=== PATIENT | male | born 1950 ===

== ENCOUNTER 2020-11-28 14:57 | Inpatient (IN) | payer MEDICARE ==
--- NOTE | 2020-11-28 15:29 | XRay Report ---
CHEST 1 VIEW 11/28/2020 3:04 PM INDICATION / CLINICAL INFORMATION: sepsis. COMPARISON: 05/04/2019 FINDINGS: SUPPORT DEVICES: None. HEART / MEDIASTINUM: No significant abnormality. LUNGS / PLEURA: Increased densities in left lower lung adjacent left cardiac border. Mild increased v ascularity perihilar regions. Mild interstitial prominence in bilateral lower lungs. No pneumothorax. Signer Name: Jose Ruff MD Signed: 11/28/2020 3:25 PM Workstation Name: [email or web address]
--- NOTE | 2020-11-28 15:35 | Emergency Department Report ---
ED Altered Mental Status HPI - General Chief Complaint: Altered Mental Status Stated Complaint: AMS/HYPOTENSION Time Seen by Provider: 11/28/20 14:59 Source: EMS Mode of arrival: Ambulatory Limitations: Altered Mental Status - History of Present Illness Initial Comments: Chief complaint: Altered mental status, hypotension HPI: This is a 70-year-old male with history of CVA, left hemiplegia, hypertension, SIRS, bradycardia, GERD, chronic pain, GI bleed, cataract, hyperlipidemia, anemia, ulcerative colitis, dementia who presents with altered mental status. According to EMS, nursing staff states that he is normally GCS 15. Patient is lethargic with hypotension. Systolic blood pressure 74 mmHg. Accu-Chek normal per EMS. Altered mental status began 2 hours prior to arrival. Patient [facility]. Patient is a resident of [facility] MD Complaint: altered mental status -: Sudden, hour(s) (2 hours) Severity: severe Consistency of Symptoms: waxing and waning Context: unknown Associated Symptoms: other (Hypotension) ED Review of Systems ROS: Stated complaint: AMS/HYPOTENSION Other details as noted in HPI Comment: Unobtainable due to pts medical conditions (Altered mental status, critically ill patient) ED Past Medical Hx - Past Medical History Previous Medical History?: Yes Hx Hypertension: Yes Hx CVA: Yes Hx Congestive Heart Failure: Yes Hx GERD: Yes Hx Dementia: Yes - Surgical History Past Surgical History?: Yes Additional Surgical History: Unable to be obtained from patient - Family History Family history: other (Noncontributory to patient's presentation today) - Social History Smoking Status: Unknown if ever smoked ED Physical Exam - General Limitations: Altered Mental Status General appearance: lethargic, other (Will make eye contact, will withdraw from noxious stimuli,) - Head Head exam: Present: atraumatic, normocephalic - Eye Eye exam: Absent: scleral icterus, conjunctival injection - ENT ENT exam: Present: mucous membranes dry - Neck Neck exam: Present: normal inspection, full ROM - Respiratory Respiratory exam: Present: normal lung sounds bilaterally. Absent: respiratory distress, wheezes, rales, stridor - Cardiovascular Cardiovascular Exam: Present: regular rate, normal rhythm, normal heart sounds. Absent: systolic murmur, diastolic murmur, rubs, gallop - GI/Abdominal GI/Abdominal exam: Present: soft, normal bowel sounds. Absent: distended, tenderness, guarding, rebound - Rectal Rectal exam: Present: deferred - Extremities Exam Extremities exam: Present: other (Contracted left upper left lower extremities) - Neurological Exam Neurological exam: Present: altered - Psychiatric Psychiatric exam: Present: flat affect - Skin Skin exam: Present: warm, dry, intact, pallor, other (Cool to touch) ED Course Vital Signs 11/28/20 11/28/20 11/28/20 15:12 15:48 15:49 Temperature 99.7 F H Pulse Rate 62 64 64 Respiratory 18 12 16 Rate Blood Pressure Blood Pressure 85/59 105/69 [Left] O2 Sat by Pulse 95 Oximetry 11/28/20 16:00 Temperature Pulse Rate 60 Respiratory 13 Rate Blood Pressure 105/69 Blood Pressure [Left] O2 Sat by Pulse 99 Oximetry - Lab Data Result diagrams: 11/28/20 15:10 11/28/20 15:10 Lab Results 11/28/20 11/28/20 11/28/20 Range/Units 15:10 15:10 15:10 WBC 12.1 H (4.5-11.0) K/mm3 RBC 5.13 H (3.65-5.03) M/mm3 Hgb 14.4 (11.8-15.2) gm/dl Hct 44.7 (35.5-45.6) % MCV 87 (84-94) fl MCH 28 (28-32) pg MCHC 32 (32-34) % RDW 16.7 H (13.2-15.2) % Plt Count 616 H (140-440) K/mm3 Lymph % (Auto) 12.2 L (13.4-35.0) % [place] % (Auto) 6.7 (0.0-7.3) % Eos % (Auto) 1.0 (0.0-4.3) % Baso % (Auto) 0.7 (0.0-1.8) % Lymph # (Auto) 1.5 (1.2-5.4) K/mm3 [place] # (Auto) 0.8 (0.0-0.8) K/mm3 Eos # (Auto) 0.1 (0.0-0.4) K/mm3 Baso # (Auto) 0.1 (0.0-0.1) K/mm3 Seg Neutrophils % 79.4 H (40.0-70.0) % Seg Neutrophils # 9.6 H (1.8-7.7) K/mm3 Sodium 147 H (137-145) mmol/L Potassium 3.0 L (3.6-5.0) mmol/L Chloride 102.6 (98-107) mmol/L Carbon Dioxide 34 H (22-30) mmol/L Anion Gap 13 mmol/L BUN 77 H (9-20) mg/dL Creatinine 5.6 H (0.8-1.3) mg/dL Estimated GFR 10 ml/min BUN/Creatinine Ratio 14 % Glucose 111 H (75-100) mg/dL Lactic Acid 2.30 H* (0.7-2.0) mmol/L Calcium 8.9 (8.4-10.2) mg/dL Total Bilirubin 0.40 (0.1-1.2) mg/dL AST 26 (5-40) units/L ALT 13 (7-56) units/L Alkaline Phosphatase 113 (35-129) units/L Troponin T 0.045 H (0.00-0.029) ng/mL Total Protein 7.9 (6.3-8.2) g/dL Albumin 3.7 L (3.9-5) g/dL Albumin/Globulin Ratio 0.9 % Triglycerides 182 H (2-149) mg/dL Cholesterol 168 (50-199) mg/dL LDL Cholesterol Direct 111 (50-130) mg/dL HDL Cholesterol 27 L (40-59) mg/dL Cholesterol/HDL Ratio 6.22 % Urine Color (Yellow) Urine Turbidity (Clear) Urine pH (5.0-7.0) Ur Specific [place] (1.003-1.030) Urine Protein (Negative) mg/dL Urine Glucose (UA) (Negative) mg/dL Urine Ketones (Negative) mg/dL Urine Blood (Negative) Urine Nitrite (Negative) Urine Bilirubin (Negative) Urine Urobilinogen (<2.0) mg/dL Ur Leukocyte Esterase (Negative) Urine WBC (Auto) (0.0-6.0) /HPF Urine RBC (Auto) (0.0-6.0) /HPF U Epithel Cells (Auto) (0-13.0) /HPF Urine Bacteria (Auto) (Negative) /HPF Urine WBC Clumps /HPF Urine Mucus /HPF 11/28/20 Range/Units 15:49 WBC (4.5-11.0) K/mm3 RBC (3.65-5.03) M/mm3 Hgb (11.8-15.2) gm/dl Hct (35.5-45.6) % MCV (84-94) fl MCH (28-32) pg MCHC (32-34) % RDW (13.2-15.2) % Plt Count (140-440) K/mm3 Lymph % (Auto) (13.4-35.0) % [place] % (Auto) (0.0-7.3) % Eos % (Auto) (0.0-4.3) % Baso % (Auto) (0.0-1.8) % Lymph # (Auto) (1.2-5.4) K/mm3 [place] # (Auto) (0.0-0.8) K/mm3 Eos # (Auto) (0.0-0.4) K/mm3 Baso # (Auto) (0.0-0.1) K/mm3 Seg Neutrophils % (40.0-70.0) % Seg Neutrophils # (1.8-7.7) K/mm3 Sodium (137-145) mmol/L Potassium (3.6-5.0) mmol/L Chloride (98-107) mmol/L Carbon Dioxide (22-30) mmol/L Anion Gap mmol/L BUN (9-20) mg/dL Creatinine (0.8-1.3) mg/dL Estimated GFR ml/min BUN/Creatinine Ratio % Glucose (75-100) mg/dL Lactic Acid (0.7-2.0) mmol/L Calcium (8.4-10.2) mg/dL Total Bilirubin (0.1-1.2) mg/dL AST (5-40) units/L ALT (7-56) units/L Alkaline Phosphatase (35-129) units/L Troponin T (0.00-0.029) ng/mL Total Protein (6.3-8.2) g/dL Albumin (3.9-5) g/dL Albumin/Globulin Ratio % Triglycerides (2-149) mg/dL Cholesterol (50-199) mg/dL LDL Cholesterol Direct (50-130) mg/dL HDL Cholesterol (40-59) mg/dL Cholesterol/HDL Ratio % Urine Color [place] (Yellow) Urine Turbidity Cloudy (Clear) Urine pH 5.0 (5.0-7.0) Ur Specific [place] 1.018 (1.003-1.030) Urine Protein 100 mg/dl (Negative) mg/dL Urine Glucose (UA) Neg (Negative) mg/dL Urine Ketones Neg (Negative) mg/dL Urine Blood Neg (Negative) Urine Nitrite Neg (Negative) Urine Bilirubin Neg (Negative) Urine Urobilinogen < 2.0 (<2.0) mg/dL Ur Leukocyte Esterase Lg (Negative) Urine WBC (Auto) 152.0 H (0.0-6.0) /HPF Urine RBC (Auto) 6.0 (0.0-6.0) /HPF U Epithel Cells (Auto) 1.0 (0-13.0) /HPF Urine Bacteria (Auto) 4+ (Negative) /HPF Urine WBC Clumps 3+ /HPF Urine Mucus Few /HPF - Radiology Data Radiology results: report reviewed Patient Name: ANGELICA RAMOS Gender: Male Date of : 1950 Referring Provider: EDILIA RUCKER Organization: [facility] Accession Number: [id number] Requested Date: November 28, 2020 15:00 Report Status: Final Requested Procedure: 1 Procedure Description: XR chest 1V ap Modality: XR Findings Reporting MD: Jose Ruff Dictation Time: November 28, 2020 14:25 Press Manager: Not available Hunting Guide Date: CHEST 1 VIEW 11/28/2020 3:04 PM INDICATION / CLINICAL INFORMATION: sepsis. COMPARISON: 05/04/2019 FINDINGS: SUPPORT DEVICES: None. HEART / MEDIASTINUM: No significant abnormality. LUNGS / PLEURA: Increased densities in left lower lung adjacent left cardiac border. Mild increased vascularity perihilar regions. Mild interstitial prominence in bilateral lower lungs. No pneumothorax. Signer Name: Jose Ruff MD Signed: 11/28/2020 2:25 PM Workstation Name: [employer] Findings Reporting MD: Matias Arauz Dictation Time: November 28, 2020 16:24 Press Manager: Not available Hunting Guide Date: CT ABDOMEN AND PELVIS WITHOUT CONTRAST HISTORY: Sepsis, acute kidney injury COMPARISON: Prior CT on 05/07/2019 TECHNIQUE: Routine abdominal and pelvic CT exam performed without contrast. Lack of intravenous contrast limits evaluation of the vascular and solid organs.. All CT scans at this location are performed using CT dose reduction for ALARA by means of automated exposure control. FINDINGS: CT ABDOMEN: Lung Bases: Mild bibasilar subsegmental atelectasis. Liver: No significant abnormality. Biliary: No significant abnormality. Spleen: No significant abnormality. Unenlarged. Pancreas: No significant abnormality. Adrenals: No significant abnormality. Kidneys: No significant abnormality. Lymphatics: No lymphadenopathy. Vasculature: Abdominal aortic and branch vessel atherosclerotic calcifications without aortic aneurysm. Bowel/Peritoneum: No significant abnormality. No free air. No free fluid. Normal appendix. CT PELVIC: : Antunez catheter in the urinary bladder. Mildly enlarged prostate again noted. Lymphatics: No lymphadenopathy. Osseous Structures: No aggressive appearing osseous lesions. Additional Findings: None IMPRESSION: 1. No acute findings. 2. Incidental findings as detailed above. Signer Name: Matias Arauz MD Signed: 11/28/2020 4:24 PM Workstation Name: [employer] - Medical Decision Making 1. UTI, septic shock: Hypotension resolved with IV fluid therapy. Upon arrival sepsis bundle ordered. IV ceftriaxone initiated emergency department. 2. Acute kidney injury attributed to renal hypoperfusion. CT abdomen pelvis did not reveal any cause for obstruction. Lab abnormalities include elevated lactic acid, BUN creatinine Pyuria on urinalysis and mild leukocytosis I personally reviewed chest radiograph: I suspect atelectasis in the left lower lobe. I do not suspect that patient has pneumonia clinically. Patient is admitted to telemetry hospitalist service. Critical Care Time: Yes Critical care time in (mins) excluding proc time.: 40 Critical care attestation.: If time is entered above; I have spent that time in minutes in the direct care of this critically ill patient, excluding procedure time. 40 minutes of critical care time excluding procedures were used in the care of the patient. Prior to patient's arrival, I received EMS report alongside RN. I was concerned for septic shock. I met the patient upon arrival in the treatment room. I obtained history from EMS at the bedside. I discussed treatment plan with the nursing team members. I directed resuscitation. I immediately ordered sepsis bundle. I reviewed electronic record. I reviewed SNF documentation patient required multiple interventions and reassessments. ED Disposition Clinical Impression: UTI (urinary tract infection), Septic shock, Acute kidney injury Disposition: DC-09 OP ADMIT IP TO THIS HOSP Is pt being admited?: Yes Does the pt Need Aspirin: No Condition: Stable Referrals: FLORESITA SANDS MD [Primary Care Provider] - 3-5 Days
[2020-11-28 16:00] LABS: Basophils # (Auto) 0.1 K/mm3 (0.0-0.1); Basophils % (Auto) 0.7 % (0.0-1.8); Eosinophils # (Auto) 0.1 K/mm3 (0.0-0.4); Hematocrit 44.7 % (35.5-45.6); Hemoglobin 14.4 gm/dl (11.8-15.2); Lymphocytes # (Auto) 1.5 K/mm3 (1.2-5.4); Lymphocytes % (Auto) 12.2 % (13.4-35.0); Mean Corpuscular HGB Conc 32 % (32-34); Mean Corpuscular Volume 87 fl (84-94); Monocytes # (Auto) 0.8 K/mm3 (0.0-0.8); Monocytes % (Auto) 6.7 % (0.0-7.3); Platelet Count 616 K/mm3 (140-440); Red Blood Count 5.13 M/mm3 (3.65-5.03); Red Cell Distribution Width 16.7 % (13.2-15.2)
[2020-11-28 16:21] LABS: Albumin 3.7 g/dL (3.9-5); Calcium 8.9 mg/dL (8.4-10.2)
[2020-11-28 16:32] LABS: Chol/HDL Ratio 6.22 %
[2020-11-28 16:36] LABS: Bacteria,Urine 4+ /HPF (Negative); Bilirubin,Urine NEG (Negative); Blood,Urine NEG (Negative); Color,Urine Amber (Yellow); Mucus,Urine FEW /HPF; Urobilinogen,Urine < 2.0 mg/dL (<2.0)
[2020-11-28] MEDS ORDERED: cefTRIAXone/NS 1 GM/50 ML 1 GM/50 ML BAG IV ONE (16:37)
[2020-11-28] MEDS ORDERED: SODIUM CHLORIDE 0.9% 1000 ML IV SOLN IV ONE (16:37)
--- NOTE | 2020-11-28 17:28 | Cat Scan Report ---
CT ABDOMEN AND PELVIS WITHOUT CONTRAST HISTORY: Sepsis, acute kidney injury COMPARISON: Prior CT on 05/07/2019 TECHNIQUE: Routine abdominal and pelvic CT exam performed without contrast. Lack of intravenous cont rast limits evaluation of the vascular and solid organs.. All CT scans at this location are performed using CT dose reduction for ALARA by means of automated exposure control. FINDINGS: CT ABDOMEN: Lung Bases: Mild bibasilar subsegmental atelectasis. Liver: No significant abnormality. Biliary: No significant abnormality. Spleen: No significant abnormality. Unenlarged. Pancreas: No significant abnormality. Adrenals: No significant abnormality. Kidneys: No significant abnormality. Lymphatics: No lymphadenopathy. Vasculature: Abdominal aortic and branch vessel atherosclerotic calcifications without aortic aneurys m. Bowel/Peritoneum: No significant abnormality. No free air. No free fluid. Normal appendix. CT PELVIC: : Antunez catheter in the urinary bladder. Mildly enlarged prostate again noted. Lymphatics: No lymphadenopathy. Osseous Structures: No aggressive appearing osseous lesions. Additional Findings: None IMPRESSION: 1. No acute findings. 2. Incidental findings as detailed above. Signer Name: Matias Arauz MD Signed: 11/28/2020 5:24 PM Workstation Name: [id number]
[2020-11-28] MEDS ORDERED: SODIUM CHLORIDE 0.9% 1000 ML 1,000 ML ONE (18:39)
--- NOTE | 2020-11-28 22:26 | History and Physical Report ---
History of Present Illness Date of examination: 11/28/20 Date of admission: 11/28/20 17:49 Chief complaint: Altered mental status, hypotension History of present illness: 70-year-old male with history of CVA, left hemiplegia, hypertension, SIRS, bradycardia, GERD, chronic pain, GI bleed, cataract, hyperlipidemia, anemia, ulcerative colitis, dementia presents with altered mental status. According to EMS, nursing staff states that he is normally GCS 15. Patient is lethargic with hypotension. Systolic blood pressure 74 mmHg. Accu-Chek normal per EMS. Altered mental status began 2 hours prior to arrival. Patient had negative rapid Covid test today at [facility]. Patient is a resident of [facility].No fever or chills Complaint: altered mental status -: Sudden, hour(s) (2 baldomero Severity: severe Consistency of Symptoms: waxing and waning Context: unknown Associated Symptoms: other (Hypotension) - Past Medical History Previous Medical History?: Yes --Hypertension: Yes --CVA: Yes --Congestive Heart Failure: Yes --GERD: Yes --Dementia: Yes - Surgical History Past Surgical History?: Yes Additional Surgical History: Unable to be obtained from patient - Family History Family history: other (Noncontributory to patient's presentation today) - Social History Smoking Status: Unknown if ever smoked Review of Systems ROS: Stated complaint: AMS/HYPOTENSION Other details as noted in HPI Comment: Unobtainable due to pts medical conditions (Altered mental status, critically ill patient) Medications and Allergies Allergies Allergy/AdvReac Type Severity Reaction Status Date / Time Unable to Assess Allergy Unverified 11/28/20 23:00 Exam - Constitutional Vitals: Temp Pulse Resp BP Pulse Ox 99.7 F H 57 L 12 120/75 99 11/28/20 15:49 11/28/20 18:46 11/28/20 18:46 11/28/20 18:46 11/28/20 16:30 General appearance: Present: no acute distress, well-nourished - EENT Eyes: Present: PERRL ENT: hearing intact, clear oral mucosa - Neck Neck: Present: supple, normal ROM - Respiratory Respiratory effort: normal Respiratory: bilateral: CTA - Cardiovascular Heart rate: 78 Rhythm: regular Heart Sounds: Present: S1 & S2. Absent: rub, click - Extremities Extremities: no ischemia, pulses intact, pulses symmetrical, No edema Peripheral Pulses: within normal limits - Abdominal General gastrointestinal: Present: soft, non-tender, non-distended, normal bowel sounds Male genitourinary: Present: normal - Integumentary Integumentary: Present: clear, warm, dry - Musculoskeletal Musculoskeletal: generalized weakness, other (Lethargic and decreased responsivenes) - Psychiatric Psychiatric: other (Lethargic and decreased responsivenes) - Neurologic Neurologic: CNII-XII intact, moves all extremities HEART Score - HEART Score History: Slightly suspicious Risk factors: 1-2 risk factors Troponin: Troponin T 0.045 ng/mL (0.00-0.029) H 11/28/20 15:10 Troponin: < normal limit - Critical Actions Critical Actions: 0-3 pts:0.9-1.7%risk of adverse cardiac event.Candidate for discharge Results - Labs CBC & Chem 7: 11/28/20 15:10 11/28/20 15:10 Labs: Laboratory Last Values WBC 12.1 K/mm3 (4.5-11.0) H 11/28/20 15:10 RBC 5.13 M/mm3 (3.65-5.03) H 11/28/20 15:10 Hgb 14.4 gm/dl (11.8-15.2) 11/28/20 15:10 Hct 44.7 % (35.5-45.6) 11/28/20 15:10 MCV 87 fl (84-94) 11/28/20 15:10 MCH 28 pg (28-32) 11/28/20 15:10 MCHC 32 % (32-34) 11/28/20 15:10 RDW 16.7 % (13.2-15.2) H 11/28/20 15:10 Plt Count 616 K/mm3 (140-440) H 11/28/20 15:10 Lymph % (Auto) 12.2 % (13.4-35.0) L 11/28/20 15:10 [place] % (Auto) 6.7 % (0.0-7.3) 11/28/20 15:10 Eos % (Auto) 1.0 % (0.0-4.3) 11/28/20 15:10 Baso % (Auto) 0.7 % (0.0-1.8) 11/28/20 15:10 Lymph # (Auto) 1.5 K/mm3 (1.2-5.4) 11/28/20 15:10 [place] # (Auto) 0.8 K/mm3 (0.0-0.8) 11/28/20 15:10 Eos # (Auto) 0.1 K/mm3 (0.0-0.4) 11/28/20 15:10 Baso # (Auto) 0.1 K/mm3 (0.0-0.1) 11/28/20 15:10 Seg Neutrophils % 79.4 % (40.0-70.0) H 11/28/20 15:10 Seg Neutrophils # 9.6 K/mm3 (1.8-7.7) H 11/28/20 15:10 Sodium 147 mmol/L (137-145) H 11/28/20 15:10 Potassium 3.0 mmol/L (3.6-5.0) L 11/28/20 15:10 Chloride 102.6 mmol/L (98-107) 11/28/20 15:10 Carbon Dioxide 34 mmol/L (22-30) H 11/28/20 15:10 Anion Gap 13 mmol/L 11/28/20 15:10 BUN 77 mg/dL (9-20) H 11/28/20 15:10 Creatinine 5.6 mg/dL (0.8-1.3) H 11/28/20 15:10 Estimated GFR 10 ml/min 11/28/20 15:10 BUN/Creatinine Ratio 14 % 11/28/20 15:10 Glucose 111 mg/dL (75-100) H 11/28/20 15:10 Lactic Acid 1.40 mmol/L (0.7-2.0) 11/28/20 17:33 Calcium 8.9 mg/dL (8.4-10.2) 11/28/20 15:10 Total Bilirubin 0.40 mg/dL (0.1-1.2) 11/28/20 15:10 AST 26 units/L (5-40) 11/28/20 15:10 ALT 13 units/L (7-56) 11/28/20 15:10 Alkaline Phosphatase 113 units/L (35-129) 11/28/20 15:10 Troponin T 0.045 ng/mL (0.00-0.029) H 11/28/20 15:10 Total Protein 7.9 g/dL (6.3-8.2) 11/28/20 15:10 Albumin 3.7 g/dL (3.9-5) L 11/28/20 15:10 Albumin/Globulin Ratio 0.9 % 11/28/20 15:10 Triglycerides 182 mg/dL (2-149) H 11/28/20 15:10 Cholesterol 168 mg/dL (50-199) 11/28/20 15:10 LDL Cholesterol Direct 111 mg/dL (50-130) 11/28/20 15:10 HDL Cholesterol 27 mg/dL (40-59) L 11/28/20 15:10 Cholesterol/HDL Ratio 6.22 % 11/28/20 15:10 Urine Color [place] (Yellow) 11/28/20 15:49 Urine Turbidity Cloudy (Clear) 11/28/20 15:49 Urine pH 5.0 (5.0-7.0) 11/28/20 15:49 Ur Specific [place] 1.018 (1.003-1.030) 11/28/20 15:49 Urine Protein 100 mg/dl mg/dL (Negative) 11/28/20 15:49 Urine Glucose (UA) Neg mg/dL (Negative) 11/28/20 15:49 Urine Ketones Neg mg/dL (Negative) 11/28/20 15:49 Urine Blood Neg (Negative) 11/28/20 15:49 Urine Nitrite Neg (Negative) 11/28/20 15:49 Urine Bilirubin Neg (Negative) 11/28/20 15:49 Urine Urobilinogen < 2.0 mg/dL (<2.0) 11/28/20 15:49 Ur Leukocyte Esterase Lg (Negative) 11/28/20 15:49 Urine WBC (Auto) 152.0 /HPF (0.0-6.0) H 11/28/20 15:49 Urine RBC (Auto) 6.0 /HPF (0.0-6.0) 11/28/20 15:49 U Epithel Cells (Auto) 1.0 /HPF (0-13.0) 11/28/20 15:49 Urine Bacteria (Auto) 4+ /HPF (Negative) 11/28/20 15:49 Urine WBC Clumps 3+ /HPF 11/28/20 15:49 Urine Mucus Few /HPF 11/28/20 15:49 Short CBC 11/28/20 Range/Units 15:10 WBC 12.1 H (4.5-11.0) K/mm3 Hgb 14.4 (11.8-15.2) gm/dl Hct 44.7 (35.5-45.6) % Plt Count 616 H (140-440) K/mm3 BMP 11/28/20 15:10 Sodium 147 H Potassium 3.0 L Chloride 102.6 Carbon Dioxide 34 H BUN 77 H Creatinine 5.6 H Glucose 111 H Calcium 8.9 Cardiac Enzymes 11/28/20 Range/Units 15:10 Troponin T 0.045 H (0.00-0.029) ng/mL Liver Function 11/28/20 Range/Units 15:10 Total Bilirubin 0.40 (0.1-1.2) mg/dL AST 26 (5-40) units/L ALT 13 (7-56) units/L Alkaline Phosphatase 113 (35-129) units/L Albumin 3.7 L (3.9-5) g/dL Urine 11/28/20 Range/Units 15:49 Urine Color [place] (Yellow) Urine pH 5.0 (5.0-7.0) Ur Specific [place] 1.018 (1.003-1.030) Urine Protein 100 mg/dl (Negative) mg/dL Urine Glucose (UA) Neg (Negative) mg/dL Microbiology: Microbiology 11/28/20 15:41 Peripheral/Venous Blood Culture - Preliminary Culture in Progress 11/28/20 15:10 Peripheral/Venous Blood Culture - Preliminary Culture in Progress - Imaging and Cardiology Chest x-ray: report reviewed CT scan - abdomen: report reviewed (NAF) Imaging and Cardiology: Cxr LUNGS / PLEURA: Increased densities in left lower lung adjacent left cardiac border. Mild increased vascularity perihilar regions. Mild interstitial prominence in bilateral lower lungs. No pne umothorax. Assessment and Plan Advance Directives: Yes (FC) VTE prophylaxis?: Chemical Plan of care discussed with patient/family: Yes - Patient Problems (1) Acute metabolic encephalopathy Current Visit: Yes Status: Acute Plan to address problem: Multifactorial Uremia and UTI (2) SRIRAM (acute kidney injury) Current Visit: Yes Status: Acute Plan to address problem: IV fluid challenge Possible ATN Baseline cr not available (3) Septic shock Current Visit: Yes Status: Acute Plan to address problem: IV fluids and IV abxs for now (4) UTI (urinary tract infection) Current Visit: Yes Status: Acute Qualifiers: Urinary tract infection type: acute cystitis Plan to address problem: Pending cultures started on IV Rocephin (5) Hypokalemia Current Visit: Yes Status: Acute Plan to address problem: Supplemented (6) DVT prophylaxis Current Visit: Yes Status: Acute Plan to address problem: On Hpearin and GI prophylaxis
[2020-11-28] MEDS ORDERED: oxyCODONE /ACETAMINOPHEN 5-325MG TAB PO PRN (22:27)
[2020-11-28] MEDS ORDERED: MORPHINE 2 MG/1 ML INJ IV PRN (22:27)
[2020-11-28] MEDS ORDERED: METOCLOPRAMIDE 10 MG/2 ML INJ IV PRN ×2 (22:27→23:04)
[2020-11-28] MEDS ORDERED: ACETAMINOPHEN 325 MG TAB PO PRN (22:27)
[2020-11-28] MEDS ORDERED: ONDANSETRON 4 MG/2 ML INJ IV PRN (22:27)
[2020-11-28] MEDS ORDERED: SODIUM CHLORIDE 0.9% 1000 ML 1,000 ML IV SCH (22:30)
[2020-11-28] MEDS ORDERED: CEFEPIME/NS 2 GM/100 ML 2 GM/100 ML BAG IV SCH (23:00)
[2020-11-28] MEDS ORDERED: VANCOMYCIN PHARMACY TO DOSE IV SCH (23:00)
[2020-11-28] MEDS: POTASSIUM CHLORIDE 10 MEQ 10 MEQ/100 ML BAG IV SCH (23:30)
[2020-11-29] MEDS: POTASSIUM CHLORIDE 10 MEQ 10 MEQ/100 ML BAG IV SCH ×3 (00:30→02:30)
[2020-11-29] MEDS: FAMOTIDINE 20 MG/2 ML INJ IV SCH (09:30)
[2020-11-29] MEDS: HEPARIN 5,000 UNIT/1 ML VIAL SUB-Q SCH ×2 (09:30→21:32)
[2020-11-29 09:58] LABS: Calcium 7.5 mg/dL (8.4-10.2)
[2020-11-29] MEDS ORDERED: FAMOTIDINE 20 MG/2 ML INJ IV SCH (10:00)
[2020-11-29] MEDS ORDERED: POTASSIUM CHLORIDE 20 MEQ PACKET PO ONE (10:45)
--- NOTE | 2020-11-29 10:47 | Progress Note ---
Assessment and Plan Assessment and plan: Acute metabolic encephalopathy Current Visit: Yes Status: Acute Plan to address problem: Multifactorial Uremia and UTI seems to be resolving, possible underlying dementia SRIRAM (acute kidney injury) Current Visit: Yes Status: Acute Plan to address problem: IV fluid challenge Possible ATN Nephrology consulted, labs pending Hypernatremia - D5 fluids w/KCL - monitor bmp Septic shock Current Visit: Yes Status: Acute Plan to address problem: IV abxs for now resolving, bp stabilizing with fluids UTI (urinary tract infection) Current Visit: Yes Status: Acute Qualifiers: Urinary tract infection type: acute cystitis Plan to address problem: Ceftriaxone urine cx pending Hypokalemia Current Visit: Yes Status: Acute Plan to address problem: K supplementation PRN, monitor labs D5W w/KCL 10meq DVT prophylaxis: Heparin Code status: full History Interval history: 11/29 pt seen, no distress, answering some questions, seems confused, a bit agitated. laying in bed Hospitalist Physical - Physical exam Narrative exam: General appearance no acute distress, well-nourished EENT: PERRL, EOM intact, hearing intact, clear oral mucosa, dentition normal Respiratory: bilateral: CTA, negative: rales, rhonchi, wheezing Cardiovascular: Regular rate/rhythm, Normal S1 & S2. No gallop, rub Extremities: no ischemia, No edema, normal temperature, normal color, Full ROM Abdominal: soft, non-tender, non-distended, normal bowel sounds Integumentary: Present: clear, warm, dry Psychiatric: flat affect, mood stable Neurologic: CNII-XII intact, moves all extremities, confused - Constitutional Vitals: Temp Pulse Resp BP Pulse Ox 97.3 F L 74 18 108/58 97 11/29/20 07:55 11/29/20 07:55 11/29/20 07:55 11/29/20 07:55 11/29/20 07:55 General appearance: Present: no acute distress, well-nourished HEART Score - HEART Score Risk factors: 1-2 risk factors Troponin: Troponin T 0.045 ng/mL (0.00-0.029) H 11/28/20 15:10 Troponin: < normal limit - Critical Actions Critical Actions: 0-3 pts:0.9-1.7%risk of adverse cardiac event.Candidate for discharge Results - Labs CBC & Chem 7: 11/28/20 15:10 11/29/20 08:25 Labs: Laboratory Last Values WBC 12.1 K/mm3 (4.5-11.0) H 11/28/20 15:10 RBC 5.13 M/mm3 (3.65-5.03) H 11/28/20 15:10 Hgb 14.4 gm/dl (11.8-15.2) 11/28/20 15:10 Hct 44.7 % (35.5-45.6) 11/28/20 15:10 MCV 87 fl (84-94) 11/28/20 15:10 MCH 28 pg (28-32) 11/28/20 15:10 MCHC 32 % (32-34) 11/28/20 15:10 RDW 16.7 % (13.2-15.2) H 11/28/20 15:10 Plt Count 616 K/mm3 (140-440) H 11/28/20 15:10 Lymph % (Auto) 12.2 % (13.4-35.0) L 11/28/20 15:10 [place] % (Auto) 6.7 % (0.0-7.3) 11/28/20 15:10 Eos % (Auto) 1.0 % (0.0-4.3) 11/28/20 15:10 Baso % (Auto) 0.7 % (0.0-1.8) 11/28/20 15:10 Lymph # (Auto) 1.5 K/mm3 (1.2-5.4) 11/28/20 15:10 [place] # (Auto) 0.8 K/mm3 (0.0-0.8) 11/28/20 15:10 Eos # (Auto) 0.1 K/mm3 (0.0-0.4) 11/28/20 15:10 Baso # (Auto) 0.1 K/mm3 (0.0-0.1) 11/28/20 15:10 Seg Neutrophils % 79.4 % (40.0-70.0) H 11/28/20 15:10 Seg Neutrophils # 9.6 K/mm3 (1.8-7.7) H 11/28/20 15:10 Sodium 154 mmol/L (137-145) H 11/29/20 08:25 Potassium 2.9 mmol/L (3.6-5.0) L* 11/29/20 08:25 Chloride 115.8 mmol/L (98-107) H 11/29/20 08:25 Carbon Dioxide 22 mmol/L (22-30) D 11/29/20 08:25 Anion Gap 19 mmol/L 11/29/20 08:25 BUN 64 mg/dL (9-20) H 11/29/20 08:25 Creatinine 2.7 mg/dL (0.8-1.3) H D 11/29/20 08:25 Estimated GFR 24 ml/min 11/29/20 08:25 BUN/Creatinine Ratio 24 % 11/29/20 08:25 Glucose 105 mg/dL (75-100) H 11/29/20 08:25 Lactic Acid 1.40 mmol/L (0.7-2.0) 11/28/20 17:33 Calcium 7.5 mg/dL (8.4-10.2) L D 11/29/20 08:25 Phosphorus 3.10 mg/dL (2.5-4.5) 11/29/20 08:25 Total Bilirubin 0.40 mg/dL (0.1-1.2) 11/28/20 15:10 AST 26 units/L (5-40) 11/28/20 15:10 ALT 13 units/L (7-56) 11/28/20 15:10 Alkaline Phosphatase 113 units/L (35-129) 11/28/20 15:10 Total Creatine Kinase 804 units/L (55-170) H 11/29/20 08:25 Troponin T 0.045 ng/mL (0.00-0.029) H 11/28/20 15:10 Total Protein 7.9 g/dL (6.3-8.2) 11/28/20 15:10 Albumin 3.7 g/dL (3.9-5) L 11/28/20 15:10 Albumin/Globulin Ratio 0.9 % 11/28/20 15:10 Triglycerides 182 mg/dL (2-149) H 11/28/20 15:10 Cholesterol 168 mg/dL (50-199) 11/28/20 15:10 LDL Cholesterol Direct 111 mg/dL (50-130) 11/28/20 15:10 HDL Cholesterol 27 mg/dL (40-59) L 11/28/20 15:10 Cholesterol/HDL Ratio 6.22 % 11/28/20 15:10 Urine Color Felecia (Yellow) 11/28/20 15:49 Urine Turbidity Cloudy (Clear) 11/28/20 15:49 Urine pH 5.0 (5.0-7.0) 11/28/20 15:49 Ur Specific [place] 1.018 (1.003-1.030) 11/28/20 15:49 Urine Protein 100 mg/dl mg/dL (Negative) 11/28/20 15:49 Urine Glucose (UA) Neg mg/dL (Negative) 11/28/20 15:49 Urine Ketones Neg mg/dL (Negative) 11/28/20 15:49 Urine Blood Neg (Negative) 11/28/20 15:49 Urine Nitrite Neg (Negative) 11/28/20 15:49 Urine Bilirubin Neg (Negative) 11/28/20 15:49 Urine Urobilinogen < 2.0 mg/dL (<2.0) 11/28/20 15:49 Ur Leukocyte Esterase Lg (Negative) 11/28/20 15:49 Urine WBC (Auto) 152.0 /HPF (0.0-6.0) H 11/28/20 15:49 Urine RBC (Auto) 6.0 /HPF (0.0-6.0) 11/28/20 15:49 U Epithel Cells (Auto) 1.0 /HPF (0-13.0) 11/28/20 15:49 Urine Bacteria (Auto) 4+ /HPF (Negative) 11/28/20 15:49 Urine WBC Clumps 3+ /HPF 11/28/20 15:49 Urine Mucus Few /HPF 11/28/20 15:49 Microbiology: Microbiology 11/28/20 15:41 Peripheral/Venous Blood Culture - Preliminary Culture in Progress 11/28/20 15:10 Peripheral/Venous Blood Culture - Preliminary Culture in Progress Antunez/IV: Voiding Method Indwelling Catheter Active Medications - Current Medications Current Medications: Generic Name Dose Route Start Last Admin Trade Name Freq PRN Reason Stop Dose Admin Acetaminophen 650 mg 11/28/20 22:27 Acetaminophen 325 Mg Tab PO Q4H PRN Pain MILD(1-3)/Fever >100.5/KIM Famotidine 20 mg 11/29/20 10:00 11/29/20 09:30 Famotidine 20 Mg/2 Ml Inj IV 20 mg DAILY HEATHER Administration Heparin Sodium (Porcine) 5,000 unit 11/29/20 10:00 11/29/20 09:30 Heparin 5,000 Unit/1 Ml Vial SUB-Q 5,000 unit Q12HR HEATHER Administration Sodium Chloride 1,000 mls @ 100 mls/hr 11/28/20 22:30 Nacl 0.9% 1000 Ml IV DIRECT HEATHER Ceftriaxone Sodium 1 gm in 50 mls @ 100 mls/hr 11/29/20 18:00 Rocephin/Ns 1 Gm/50 Ml IV Q24H [facility] Protocol Metoclopramide HCl 5 mg 11/28/20 23:04 Metoclopramide 10 Mg/2 Ml Inj IV Q6H PRN Nausea And Vomiting Morphine Sulfate 2 mg 11/28/20 22:27 Morphine 2 Mg/1 Ml Inj IV Q4H PRN Pain, Moderate (4-6) Ondansetron HCl 4 mg 11/28/20 22:27 Ondansetron 4 Mg/2 Ml Inj IV Q3H PRN Nausea And Vomiting Oxycodone/Acetaminophen 1 tab 11/28/20 22:27 Oxycodone /Acetaminophen 5-325mg Tab PO Q6H PRN Pain, Moderate (4-6) Potassium Chloride 40 meq 11/29/20 10:45 Potassium Chloride 20 Meq Packet PO 11/29/20 10:46 ONCE ONE Sodium Chloride 10 ml 11/29/20 10:00 Sodium Chloride 0.9% 10 Ml Flush Syringe IV BID HEATHER Sodium Chloride 10 ml 11/28/20 22:27 Sodium Chloride 0.9% 10 Ml Flush Syringe IV PRN PRN LINE FLUSH
[2020-11-29] MEDS: POTASSIUM CHLORIDE 10 MEQ in DEXTROSE 5% IN WATER 1,000 ML IV SCH (12:41)
--- NOTE | 2020-11-29 12:54 | Consultation ---
History of Present Illness - Reason for Consult Consult date: 11/29/20 acute renal failure, hypokalemia - History of Present Illness The patient is a 70 YO male with history significant for HTN, HLD, CVA with residual left hemiplegia, GERD, chronic pain, GI bleed, Cataract, Anemia, Ulcerative colitis and Dementia who presented to [facility] ED 11/28 with AMS. Patient was not able to provide any history and there was no family member at the bedside. According to EMS, nursing staff states that he is normally GCS 15. Altered mental status began 2 hours prior to arrival. Patient was lethargic wit h Systolic blood pressure 74 mmHg. Accu-Chek normal per EMS. Patient had negative rapid Covid test 11/28 at [facility]. Labs significant for Creat 5.6, BUN 77, k 3, Sodium 147, Lactate 2.3. Nephrology was consulted for further evaluation. Past History Past Medical History: other (See HPI.) Medications and Allergies Allergies Allergy/AdvReac Type Severity Reaction Status Date / Time Penicillins Allergy Anaphylaxis Verified 11/29/20 10:49 Active Meds: Active Medications Acetaminophen (Acetaminophen 325 Mg Tab) 650 mg PO Q4H PRN PRN Reason: Pain MILD(1-3)/Fever >100.5/KIM Famotidine (Famotidine 20 Mg/2 Ml Inj) 20 mg IV DAILY HEATHER Last Admin: 11/29/20 09:30 Dose: 20 mg Documented by: Heparin Sodium (Porcine) (Heparin 5,000 Unit/1 Ml Vial) 5,000 unit SUB-Q Q12HR HEATHER Last Admin: 11/29/20 09:30 Dose: 5,000 unit Documented by: Ceftriaxone Sodium (Rocephin/Ns 1 Gm/50 Ml) 1 gm in 50 mls @ 100 mls/hr IV Q24H HEATHER; Protocol Potassium Chloride 10 meq/ (Dextrose) 1,005 mls @ 100 mls/hr IV DIRECT HEATHER Last Admin: 11/29/20 12:41 Dose: 100 mls/hr Documented by: Metoclopramide HCl (Metoclopramide 10 Mg/2 Ml Inj) 5 mg IV Q6H PRN PRN Reason: Nausea And Vomiting Morphine Sulfate (Morphine 2 Mg/1 Ml Inj) 2 mg IV Q4H PRN PRN Reason: Pain, Moderate (4-6) Ondansetron HCl (Ondansetron 4 Mg/2 Ml Inj) 4 mg IV Q3H PRN PRN Reason: Nausea And Vomiting Oxycodone/Acetaminophen (Oxycodone /Acetaminophen 5-325mg Tab) 1 tab PO Q6H PRN PRN Reason: Pain, Moderate (4-6) Sodium Chloride (Sodium Chloride 0.9% 10 Ml Flush Syringe) 10 ml IV BID HEATHER Last Admin: 11/29/20 12:15 Dose: 10 ml Documented by: Sodium Chloride (Sodium Chloride 0.9% 10 Ml Flush Syringe) 10 ml IV PRN PRN PRN Reason: LINE FLUSH Review of Systems ROS unobtainable: due to mental status Exam - Vital Signs Vital signs: Vital Signs Pulse Resp BP Pulse Ox 62 18 85/59 95 11/28/20 15:12 11/28/20 15:12 11/28/20 15:12 11/28/20 15:12 Results - Lab Results 11/28/20 15:10 11/29/20 08:25 Most recent lab results Calcium 7.5 mg/dL (8.4-10.2) L D 11/29/20 08:25 Phosphorus 3.10 mg/dL (2.5-4.5) 11/29/20 08:25 Assessment and Plan 1. Acute kidney injury: Vasomotor SRIRAM in the setting of hypotension and volume depletion. CT abdomen negative for hydro. Baseline renal function is unknown. Highly likely baseline CKD. Monitor renal function. Creatinine level is improving. Avoid nephrotoxic agents. Meds dosage based on GFR. 2. FEN: Hypernatremia, on IV D5W. Hypokalemia, replete K, monitor. Anion-gap metabolic acidosis, monitor. Monitor lytes and volume status. 3. Sepsis with shock: Off pressors. Abx, follow cultures. Monitor BP, improving. 4. UTI: Ceftriaxone. Urine cx GNR. 5. Metabolic encephalopathy: Baseline dementia. Monitor. 6. H/o HTN: Monitor BP. 7. H/o CVA with residual L hemiplegia. Subjective: Patient was seen and examined at the bedside. Objective: General appearance: well-developed, appears stated age, not in distress HEENT: ATNC, JOSEPH Neck: trachea midline Respiratory: ctab Heart: regular, S1S2, no murmur Gastrointestinal: soft, normoactive bowel sounds, not tender Integumentary: no rash, warm and dry Ext: no edema Neurologic: alert, non-verbal, not following any command Musculo-skeletal: L Ue & Le deformity noted Ext: no edema : Antunez catheter
[2020-11-29] MEDS: cefTRIAXone/NS 1 GM/50 ML 1 GM/50 ML BAG IV SCH (17:33)
[2020-11-30] MEDS: POTASSIUM CHLORIDE 10 MEQ in DEXTROSE 5% IN WATER 1,000 ML IV SCH (01:00)
[2020-11-30 06:37] LABS: Calcium 9.3 mg/dL (8.4-10.2)
[2020-11-30] MEDS: HEPARIN 5,000 UNIT/1 ML VIAL SUB-Q SCH ×2 (09:23→21:57)
[2020-11-30] MEDS: FAMOTIDINE 20 MG/2 ML INJ IV SCH (09:23)
[2020-11-30] MEDS: D5W/0.45% NACL 1,000 ML IV SCH ×2 (09:24→17:01)
--- NOTE | 2020-11-30 11:47 | Progress Note ---
Assessment and Plan 1. Acute kidney injury: Vasomotor SRIRAM in the setting of hypotension and volume depletion. CT abdomen negative for hydro. Baseline renal function is unknown. Highly likely baseline CKD. Monitor renal function. Creatinine level is improving. Avoid nephrotoxic agents. Meds dosage based on GFR. 2. FEN: Hypernatremia, improved. IV fluids changed. Hypokalemia, K level is better, monitor. Anion-gap metabolic acidosis, monitor. Replete Phos. Monitor lytes and volume status. 3. Sepsis with shock: Off pressors. Abx. Monitor BP, improving. 4. UTI: Urine pansensitive Kleb. On Ceftriaxone. 5. Metabolic encephalopathy: Baseline dementia. Monitor. 6. H/o HTN: Monitor BP. 7. H/o CVA with residual L hemiplegia. Subjective: Patient was seen and examined at the bedside. Objective: General appearance: well-developed, appears stated age, not in distress HEENT: ATNC, JOSEPH Neck: trachea midline Respiratory: ctab Heart: regular, S1S2, no murmur Gastrointestinal: soft, normoactive bowel sounds, not tender Integumentary: no rash, warm and dry Ext: no edema Neurologic: alert, able to tell his name, moving extremities, L sided weakness Musculo-skeletal: L UE & LE deformity noted Ext: no edema : Antunez catheter Subjective Date of service: 11/30/20 Objective - Vital Signs Vital signs: Vital Signs - 12hr 11/30/20 11/30/20 11/30/20 05:27 07:30 10:00 Temperature 99.3 F 98.1 F Pulse Rate 73 73 Pulse Rate [ 73 Left Radial] Pulse Rate [ 73 Right Radial] Respiratory 16 19 19 Rate Blood Pressure 123/82 Blood Pressure 142/93 [Left] O2 Sat by Pulse 96 99 Oximetry - Lab 11/28/20 15:10 11/30/20 05:07 Most recent lab results Calcium 9.3 mg/dL (8.4-10.2) D 11/30/20 05:07 Phosphorus 2.30 mg/dL (2.5-4.5) L D 11/30/20 05:07 Magnesium 2.30 mg/dL (1.7-2.3) 11/30/20 05:07 Medications & Allergies - Medications Allergies/Adverse Reactions: Allergies Penicillins Allergy (Verified 11/29/20 10:49) Anaphylaxis Active Medications: Generic Name Dose Route Start Last Admin Trade Name Bartq PRN Reason Stop Dose Admin Acetaminophen 650 mg 11/28/20 22:27 Acetaminophen 325 Mg Tab PO Q4H PRN Pain MILD(1-3)/Fever >100.5/KIM Famotidine 20 mg 11/29/20 10:00 11/30/20 09:23 Famotidine 20 Mg/2 Ml Inj IV 20 mg DAILY HEATHER Administration Heparin Sodium (Porcine) 5,000 unit 11/29/20 10:00 11/30/20 09:23 Heparin 5,000 Unit/1 Ml Vial SUB-Q 5,000 unit Q12HR HEATHER Administration Ceftriaxone Sodium 1 gm in 50 mls @ 100 mls/hr 11/29/20 18:00 11/29/20 17:33 Rocephin/Ns 1 Gm/50 Ml IV 100 mls/hr Q24H HEATHER Administration Protocol Dextrose/Sodium Chloride 1,000 mls @ 60 mls/hr 11/30/20 09:00 11/30/20 09:24 D5/0.45ns IV 60 mls/hr DIRECT HEATHER Administration Metoclopramide HCl 5 mg 11/28/20 23:04 Metoclopramide 10 Mg/2 Ml Inj IV Q6H PRN Nausea And Vomiting Morphine Sulfate 2 mg 11/28/20 22:27 Morphine 2 Mg/1 Ml Inj IV Q4H PRN Pain, Moderate (4-6) Ondansetron HCl 4 mg 11/28/20 22:27 Ondansetron 4 Mg/2 Ml Inj IV Q3H PRN Nausea And Vomiting Oxycodone/Acetaminophen 1 tab 11/28/20 22:27 Oxycodone /Acetaminophen 5-325mg Tab PO Q6H PRN Pain, Moderate (4-6) Sodium Chloride 10 ml 11/29/20 10:00 11/30/20 09:24 Sodium Chloride 0.9% 10 Ml Flush Syringe IV 10 ml BID HEATHER Administration Sodium Chloride 10 ml 11/28/20 22:27 Sodium Chloride 0.9% 10 Ml Flush Syringe IV PRN PRN LINE FLUSH
[2020-11-30] MEDS ORDERED: PHOS-NAK POWDER PACKET PO NR (12:26)
--- NOTE | 2020-11-30 15:30 | Progress Note ---
Assessment and Plan Assessment and plan: Acute metabolic encephalopathy Current Visit: Yes Status: Acute Plan to address problem: Multifactorial Uremia and UTI seems to be resolving, possible underlying dementia SRIRAM (acute kidney injury) Current Visit: Yes Status: Acute Plan to address problem: IV fluid challenge Possible ATN Nephrology consulted, improving with fluids Hypernatremia - DC'd D5 fluids w/KCL - D5 1/2 NS fluids, low maintenance - monitor bmp Septic shock Current Visit: Yes Status: Acute Plan to address problem: IV abxs for now resolving, bp stabilizing with fluids UTI (urinary tract infection) with reddy catheter POA Current Visit: Yes Status: Acute Qualifiers: Urinary tract infection type: acute cystitis Plan to address problem: Ceftriaxone urine cx w/klebsiella, pansensitive Hypokalemia Current Visit: Yes Status: Acute Plan to address problem: K supplementation PRN, monitor labs DC'd D5W w/KCL 10meq resolved DVT prophylaxis: Heparin Code status: full Disposition: Anticipate DC back to intermediate on Tuesday. History Interval history: 11/29 pt seen, no distress, answering some questions, seems confused, a bit agitated. laying in bed 11/30 pt seen, eating breakfast, answering questions, more awake, less confused Hospitalist Physical - Physical exam Narrative exam: General appearance no acute distress, well-nourished EENT: PERRL, EOM intact, hearing intact, clear oral mucosa, dentition normal Respiratory: bilateral: CTA, negative: rales, rhonchi, wheezing Cardiovascular: Regular rate/rhythm, Normal S1 & S2. No gallop, rub Extremities: no ischemia, No edema, normal temperature, normal color, Full ROM Abdominal: soft, non-tender, non-distended, normal bowel sounds Integumentary: Present: clear, warm, dry Psychiatric: flat affect, mood stable Neurologic: CNII-XII intact, left upper and lower extremity 0/5 strength - Constitutional Vitals: Temp Pulse Resp BP Pulse Ox 97.8 F 89 19 148/100 99 11/30/20 11:56 11/30/20 11:56 11/30/20 11:56 11/30/20 11:56 11/30/20 11:56 General appearance: Present: no acute distress, well-nourished HEART Score - HEART Score Risk factors: 1-2 risk factors Troponin: Troponin T 0.045 ng/mL (0.00-0.029) H 11/28/20 15:10 Troponin: < normal limit - Critical Actions Critical Actions: 0-3 pts:0.9-1.7%risk of adverse cardiac event.Candidate for discharge Results - Labs CBC & Chem 7: 11/28/20 15:10 11/30/20 05:07 Labs: Laboratory Last Values WBC 12.1 K/mm3 (4.5-11.0) H 11/28/20 15:10 RBC 5.13 M/mm3 (3.65-5.03) H 11/28/20 15:10 Hgb 14.4 gm/dl (11.8-15.2) 11/28/20 15:10 Hct 44.7 % (35.5-45.6) 11/28/20 15:10 MCV 87 fl (84-94) 11/28/20 15:10 MCH 28 pg (28-32) 11/28/20 15:10 MCHC 32 % (32-34) 11/28/20 15:10 RDW 16.7 % (13.2-15.2) H 11/28/20 15:10 Plt Count 616 K/mm3 (140-440) H 11/28/20 15:10 Lymph % (Auto) 12.2 % (13.4-35.0) L 11/28/20 15:10 [place] % (Auto) 6.7 % (0.0-7.3) 11/28/20 15:10 Eos % (Auto) 1.0 % (0.0-4.3) 11/28/20 15:10 Baso % (Auto) 0.7 % (0.0-1.8) 11/28/20 15:10 Lymph # (Auto) 1.5 K/mm3 (1.2-5.4) 11/28/20 15:10 [place] # (Auto) 0.8 K/mm3 (0.0-0.8) 11/28/20 15:10 Eos # (Auto) 0.1 K/mm3 (0.0-0.4) 11/28/20 15:10 Baso # (Auto) 0.1 K/mm3 (0.0-0.1) 11/28/20 15:10 Seg Neutrophils % 79.4 % (40.0-70.0) H 11/28/20 15:10 Seg Neutrophils # 9.6 K/mm3 (1.8-7.7) H 11/28/20 15:10 Sodium 141 mmol/L (137-145) D 11/30/20 05:07 Potassium 4.0 mmol/L (3.6-5.0) D 11/30/20 05:07 Chloride 105.8 mmol/L (98-107) 11/30/20 05:07 Carbon Dioxide 25 mmol/L (22-30) 11/30/20 05:07 Anion Gap 14 mmol/L 11/30/20 05:07 BUN 42 mg/dL (9-20) H 11/30/20 05:07 Creatinine 1.7 mg/dL (0.8-1.3) H 11/30/20 05:07 Estimated GFR 40 ml/min 11/30/20 05:07 BUN/Creatinine Ratio 25 % 11/30/20 05:07 Glucose 98 mg/dL (75-100) 11/30/20 05:07 Lactic Acid 1.40 mmol/L (0.7-2.0) 11/28/20 17:33 Calcium 9.3 mg/dL (8.4-10.2) D 11/30/20 05:07 Phosphorus 2.30 mg/dL (2.5-4.5) L D 11/30/20 05:07 Magnesium 2.30 mg/dL (1.7-2.3) 11/30/20 05:07 Total Bilirubin 0.40 mg/dL (0.1-1.2) 11/28/20 15:10 AST 26 units/L (5-40) 11/28/20 15:10 ALT 13 units/L (7-56) 11/28/20 15:10 Alkaline Phosphatase 113 units/L (35-129) 11/28/20 15:10 Total Creatine Kinase 804 units/L (55-170) H 11/29/20 08:25 Troponin T 0.045 ng/mL (0.00-0.029) H 11/28/20 15:10 Total Protein 7.9 g/dL (6.3-8.2) 11/28/20 15:10 Albumin 3.7 g/dL (3.9-5) L 11/28/20 15:10 Albumin/Globulin Ratio 0.9 % 11/28/20 15:10 Triglycerides 182 mg/dL (2-149) H 11/28/20 15:10 Cholesterol 168 mg/dL (50-199) 11/28/20 15:10 LDL Cholesterol Direct 111 mg/dL (50-130) 11/28/20 15:10 HDL Cholesterol 27 mg/dL (40-59) L 11/28/20 15:10 Cholesterol/HDL Ratio 6.22 % 11/28/20 15:10 PTH Intact 216.1 pg/mL (15-65) H 11/29/20 08:25 Urine Color Felecia (Yellow) 11/28/20 15:49 Urine Turbidity Cloudy (Clear) 11/28/20 15:49 Urine pH 5.0 (5.0-7.0) 11/28/20 15:49 Ur Specific [place] 1.018 (1.003-1.030) 11/28/20 15:49 Urine Protein 100 mg/dl mg/dL (Negative) 11/28/20 15:49 Urine Glucose (UA) Neg mg/dL (Negative) 11/28/20 15:49 Urine Ketones Neg mg/dL (Negative) 11/28/20 15:49 Urine Blood Neg (Negative) 11/28/20 15:49 Urine Nitrite Neg (Negative) 11/28/20 15:49 Urine Bilirubin Neg (Negative) 11/28/20 15:49 Urine Urobilinogen < 2.0 mg/dL (<2.0) 11/28/20 15:49 Ur Leukocyte Esterase Lg (Negative) 11/28/20 15:49 Urine WBC (Auto) 152.0 /HPF (0.0-6.0) H 11/28/20 15:49 Urine RBC (Auto) 6.0 /HPF (0.0-6.0) 11/28/20 15:49 U Epithel Cells (Auto) 1.0 /HPF (0-13.0) 11/28/20 15:49 Urine Bacteria (Auto) 4+ /HPF (Negative) 11/28/20 15:49 Urine WBC Clumps 3+ /HPF 11/28/20 15:49 Urine Mucus Few /HPF 11/28/20 15:49 Microbiology: Microbiology 11/28/20 16:47 Urine,Catheterized - Indwelling Catheter Urine Culture - Final Klebsiella Pneumoniae 11/28/20 15:41 Peripheral/Venous Blood Culture - Preliminary NO GROWTH AFTER 24 HOURS 11/28/20 15:10 Peripheral/Venous Blood Culture - Preliminary NO GROWTH AFTER 24 HOURS Reddy/IV: Voiding Method Indwelling Catheter Active Medications - Current Medications Current Medications: Generic Name Dose Route Start Last Admin Trade Name Freq PRN Reason Stop Dose Admin Acetaminophen 650 mg 11/28/20 22:27 Acetaminophen 325 Mg Tab PO Q4H PRN Pain MILD(1-3)/Fever >100.5/KIM Famotidine 20 mg 11/29/20 10:00 11/30/20 09:23 Famotidine 20 Mg/2 Ml Inj IV 20 mg DAILY HEATHER Administration Heparin Sodium (Porcine) 5,000 unit 11/29/20 10:00 11/30/20 09:23 Heparin 5,000 Unit/1 Ml Vial SUB-Q 5,000 unit Q12HR HEATHER Administration Ceftriaxone Sodium 1 gm in 50 mls @ 100 mls/hr 11/29/20 18:00 11/29/20 17:33 Rocephin/Ns 1 Gm/50 Ml IV 100 mls/hr Q24H HEATHER Administration Protocol Dextrose/Sodium Chloride 1,000 mls @ 60 mls/hr 11/30/20 09:00 11/30/20 09:24 D5/0.45ns IV 60 mls/hr DIRECT HEATHER Administration Metoclopramide HCl 5 mg 11/28/20 23:04 Metoclopramide 10 Mg/2 Ml Inj IV Q6H PRN Nausea And Vomiting Morphine Sulfate 2 mg 11/28/20 22:27 Morphine 2 Mg/1 Ml Inj IV Q4H PRN Pain, Moderate (4-6) Ondansetron HCl 4 mg 11/28/20 22:27 Ondansetron 4 Mg/2 Ml Inj IV Q3H PRN Nausea And Vomiting Oxycodone/Acetaminophen 1 tab 11/28/20 22:27 Oxycodone /Acetaminophen 5-325mg Tab PO Q6H PRN Pain, Moderate (4-6) Potassium Phos/Sodium Phos 2 each 11/30/20 12:26 Phos-Nak Powder Packet PO 11/30/20 18:00 ONCE NR Sodium Chloride 10 ml 11/29/20 10:00 11/30/20 09:24 Sodium Chloride 0.9% 10 Ml Flush Syringe IV 10 ml BID HEATHER Administration Sodium Chloride 10 ml 11/28/20 22:27 Sodium Chloride 0.9% 10 Ml Flush Syringe IV PRN PRN LINE FLUSH Nutrition/Malnutrition Assess - Dietary Evaluation Nutrition/Malnutrition Findings: Nutrition Notes Start: 11/29/20 11:49 Freq: Status: Active Protocol: Document 11/29/20 11:49 AMIRA (Rec: 11/29/20 11:54 AMIAR [email or web address]) Nutrition Notes Need for Assessment generated from: seamless hosiery knitter,MST Initial or Follow up Assessment Current Diagnosis Acute Kidney Injury,Sepsis, Hypertension,Stroke, Hyperlipidemia Other Pertinent Diagnosis AMS, Hypotension, UTI, Dementia Current Diet Consistent CHO Labs/Tests Na 154 K 2.9 BUN 64 Cr 2.7 Pertinent Medications 10mEq KCl in D5W at 100ml/hr Height 6 ft 4 in Weight 83.4 kg [place] Body Weight (kg) 91.81 BMI 22.4 Weight Status Underweight Subjective/Other Information Pt screened for malnutrition risk; he is from a [place] amd non- verbal at this time. Burn Absent Trauma Absent Minimum of two criteria No #1 Nutrition Diagnosis Predicted suboptimal energy intake Etiology AMS, UTI/Sepsis As Evidenced by Signs and Symptoms pt with hx of dementia and from a CA Is patient on ventilator? No Is Patient Ambulatory and/or Out of Bed No REE-([facility]-confined to bed) 2051.132 Calculation Used for Recommendations [facility] Additional Notes Pro needs 0.8-1.2g/k-100g /day Fluid needs 1ml/kcal Nutrition Intervention Change Diet Order: Continue current diet order Goal #1 PO intake to meet at least 75% energy and pro needs Goal #2 Wt maintenance and/or gain Anticipated Discharge Needs: If necessary, ONS 1-2 times daily for wt maintenance Follow-Up By: 12/02/20 Additional Comments F/U: intakes, need for ONS
[2020-11-30] MEDS: cefTRIAXone/NS 1 GM/50 ML 1 GM/50 ML BAG IV SCH (17:00)
[2020-12-01 07:44] VITALS: BP 151/92
[2020-12-01] MEDS: FAMOTIDINE 20 MG/2 ML INJ IV SCH (09:01)
[2020-12-01] MEDS: HEPARIN 5,000 UNIT/1 ML VIAL SUB-Q SCH (09:01)
[2020-12-01 09:02] LABS: BUN/Creatinine Ratio 15; Blood Urea Nitrogen 16 mg/dL (9-20); Calcium 8.5 mg/dL (8.4-10.2); Hemolysis Index 16
--- NOTE | 2020-12-01 09:19 | Discharge Summary ---
Providers - Providers Date of Admission: 11/28/20 17:49 Date of discharge: 12/01/20 Attending physician: YAYA PHILLIPS MD 11/28/20 22:38 Consult to Physician [CONS] Routine Comment: Consulting Provider: NIKKI FISCHER Physician Instructions: Reason For Exam: ckd/esrd Primary care physician: FLORESITA SANDS Hospitalization Reason for admission: Acute Encephalopathy Secondary to UTI Condition: Stable Hospital course: 70-year-old -[place] male who presented from [facility] secondary to acute toxic encephalopathy and hypernatremia. Patient was diagnosed with catheter related urinary tract infection, started on antibiotics and fluids, SRIRAM managed by nephrology, SRIRAM resolved with fluids. Patient was eating and drinking, stable for discharge. Acute metabolic encephalopathy Current Visit: Yes Status: Acute Plan to address problem: Multifactorial Uremia and UTI seems to be resolving, possible underlying dementia SRIRAM (acute kidney injury) Current Visit: Yes Status: Acute Plan to address problem: IV fluid challenge Nephrology consulted, improving with fluids Hypernatremia - DC'd D5 fluids w/KCL - D5 1/2 NS fluids, low maintenance - monitor bmp Septic shock Current Visit: Yes Status: Acute Plan to address problem: IV abxs for now resolving, bp stabilizing with fluids UTI (urinary tract infection) with reddy catheter POA Current Visit: Yes Status: Acute Qualifiers: Urinary tract infection type: acute cystitis Plan to address problem: Ceftriaxone urine cx w/klebsiella, pansensitive Patient discharged on ciprofloxacin p.o. Hypokalemia Current Visit: Yes Status: Acute Plan to address problem: K supplementation PRN, monitor labs DC'd D5W w/KCL 10meq resolved History Interval history: 11/29 pt seen, no distress, answering some questions, seems confused, a bit agitated. laying in bed 11/30 pt seen, eating breakfast, answering questions, more awake, less confused 12/01 patient seen, eating and drinking, no agitation, more awake, nurse at the bedside patient doing well, stable for discharge Disposition: [id number] Final Discharge Diagnosis (Prints w/discharge instructions): Acute metabolic encephalopathy. Acute kidney injury. Hypernatremia. Hypovolemic septic shock. Hypokalemia Time spent for discharge: > 35 minutes Core Measure Documentation - Palliative Care Palliative Care/ Comfort Measures: Not Applicable - Core Measures Any of the following diagnoses?: none Exam - Physical Exam Narrative exam: General appearance no acute distress, well-nourished EENT: PERRL, EOM intact, hearing intact, clear oral mucosa, dentition normal Respiratory: bilateral: CTA, negative: rales, rhonchi, wheezing Cardiovascular: Regular rate/rhythm, Normal S1 & S2. No gallop, rub Extremities: no ischemia, No edema, normal temperature, normal color, Full ROM Abdominal: soft, non-tender, non-distended, normal bowel sounds Integumentary: Present: clear, warm, dry Psychiatric: flat affect, mood stable Neurologic: CNII-XII intact, left upper and lower extremity 0/5 strength - Constitutional Vitals: Temp Pulse Resp BP Pulse Ox 98.4 F 65 18 151/92 98 12/01/20 07:20 12/01/20 08:40 12/01/20 08:40 12/01/20 07:20 12/01/20 07:20 Plan Activity: up only with assistance Diet: regular Follow up with: FLORESITA SANDS MD [Primary Care Provider] - 3-5 Days Prescriptions: Ciprofloxacin HCl [Ciprofloxacin TAB] 250 mg PO BID 7 Days #14 tablet
[2020-12-01] MEDS ORDERED: PHOS-NAK POWDER PACKET PO ONE (09:30)
--- NOTE | 2020-12-01 09:30 | Progress Note ---
Assessment and Plan 1. Acute kidney injury: Vasomotor SRIRAM in the setting of hypotension and volume depletion. CT abdomen negative for hydro. Monitor renal function. Creatinine level is better. Avoid nephrotoxic agents. Meds dosage based on GFR. 2. FEN: Hypernatremia, improved. Hypokalemia, K level is better, monitor. Anion-gap metabolic acidosis, improved. Replete Phos. Monitor lytes and volume status. 3. Sepsis with shock: Off pressors. Abx. Monitor BP, improving. 4. UTI: Urine pansensitive Kleb. s/p Ceftriaxone. 5. Metabolic encephalopathy: Baseline dementia. Monitor. 6. H/o HTN: Monitor BP. 7. H/o CVA with residual L hemiplegia. Subjective: Patient was seen and examined at the bedside. Objective: General appearance: well-developed, appears stated age, not in distress HEENT: ATNC, JOSEPH Neck: trachea midline Respiratory: ctab Heart: regular, S1S2, no murmur Gastrointestinal: soft, normoactive bowel sounds, not tender Integumentary: no rash, warm and dry Ext: no edema Neurologic: alert, able to tell his name, moving extremities, L sided weakness Musculo-skeletal: L UE & LE deformity noted Ext: no edema : Antunez catheter Subjective Date of service: 12/01/20 Objective - Vital Signs Vital signs: Vital Signs - 12hr 11/30/20 11/30/20 12/01/20 22:20 23:53 04:13 Temperature 98.3 F 97.5 F L Pulse Rate 79 74 79 Pulse Rate [ Left Radial] Pulse Rate [ Right Radial] Respiratory 16 16 Rate Blood Pressure 155/93 132/87 O2 Sat by Pulse 99 96 Oximetry 12/01/20 12/01/20 07:20 08:40 Temperature 98.4 F Pulse Rate 60 Pulse Rate [ 65 Left Radial] Pulse Rate [ 65 Right Radial] Respiratory 16 18 Rate Blood Pressure 151/92 O2 Sat by Pulse 98 Oximetry - Lab 11/28/20 15:10 12/01/20 08:17 Most recent lab results Calcium 8.5 mg/dL (8.4-10.2) 12/01/20 08:17 Phosphorus 2.10 mg/dL (2.5-4.5) L 12/01/20 08:17 Magnesium 2.30 mg/dL (1.7-2.3) 11/30/20 05:07 Medications & Allergies - Medications Allergies/Adverse Reactions: Allergies Penicillins Allergy (Verified 11/29/20 10:49) Anaphylaxis Home Medications: Home Medications Medication Instructions Recorded Confirmed Last Taken Type Ciprofloxacin HCl [Ciprofloxacin 250 mg PO BID 7 Days #14 tablet 12/01/20 Unknown Rx TAB] Active Medications: Generic Name Dose Route Start Last Admin Trade Name Freq PRN Reason Stop Dose Admin Acetaminophen 650 mg 11/28/20 22:27 Acetaminophen 325 Mg Tab PO Q4H PRN Pain MILD(1-3)/Fever >100.5/KIM Famotidine 20 mg 12/01/20 10:00 Famotidine 20 Mg Tab PO BID HEATHER Heparin Sodium (Porcine) 5,000 unit 11/29/20 10:00 12/01/20 09:01 Heparin 5,000 Unit/1 Ml Vial SUB-Q 5,000 unit Q12HR HEATHER Administration Metoclopramide HCl 5 mg 11/28/20 23:04 Metoclopramide 10 Mg/2 Ml Inj IV Q6H PRN Nausea And Vomiting Morphine Sulfate 2 mg 11/28/20 22:27 Morphine 2 Mg/1 Ml Inj IV Q4H PRN Pain, Moderate (4-6) Ondansetron HCl 4 mg 11/28/20 22:27 Ondansetron 4 Mg/2 Ml Inj IV Q3H PRN Nausea And Vomiting Oxycodone/Acetaminophen 1 tab 11/28/20 22:27 Oxycodone /Acetaminophen 5-325mg Tab PO Q6H PRN Pain, Moderate (4-6) Sodium Chloride 10 ml 11/29/20 10:00 12/01/20 09:01 Sodium Chloride 0.9% 10 Ml Flush Syringe IV 10 ml BID HEATHER Administration Sodium Chloride 10 ml 11/28/20 22:27 Sodium Chloride 0.9% 10 Ml Flush Syringe IV PRN PRN LINE FLUSH
[2020-12-01] MEDS ORDERED: FAMOTIDINE 20 MG TAB PO SCH (10:00)
== END 2020-12-01 17:39 | DRG 698 ==
LOC: ED 14:57 → 4A 17:49
PROVIDERS: ADMIT Internal Medicine; ATTEND Family Medicine
DX: T83.518A Infection and inflammatory reaction due to other urinary catheter, initial encounter (principal); A41.9 Sepsis, unspecified organism; N17.0 Acute kidney failure with tubular necrosis; G92 Toxic encephalopathy; R65.21 Severe sepsis with septic shock; E87.0 Hyperosmolality and hypernatremia; I69.354 Hemiplegia and hemiparesis following cerebral infarction affecting left non-dominant side; N30.00 Acute cystitis without hematuria; E87.6 Hypokalemia; B96.1 Klebsiella pneumoniae [K. pneumoniae] as the cause of diseases classified elsewhere; K21.9 Gastro-esophageal reflux disease without esophagitis; E78.5 Hyperlipidemia, unspecified; G89.29 Other chronic pain; D64.9 Anemia, unspecified; F03.90 Unspecified dementia, unspecified severity, without behavioral disturbance, psychotic disturbance, mood disturbance, and anxiety; I11.0 Hypertensive heart disease with heart failure; I50.9 Heart failure, unspecified; Z20.822 Contact with and (suspected) exposure to COVID-19; Z88.0 Allergy status to penicillin; Y84.6 Urinary catheterization as the cause of abnormal reaction of the patient, or of later complication, without mention of misadventure at the time of the procedure
CPT/HCPCS: 36415; 71045; 74176; 80048; 80053; 80061; 81001; 82140; 82550; 83735; 83970; 84100; 84484; 85025; 87040; 87076; 87086; 87186; 96361; 96365; 96375; 96376; G0378; J0696; J1644; J3480; J7030; J7070; U0003